=== PATIENT | male | born 1985 | race Caucasian/White ===

== ENCOUNTER 2021-04-24 00:40 | Emergency (ER) | payer SELFPAY ==
[~2021-04-24] VITALS: Ht 180.3 cm; Wt 81.8 kg
[2021-04-24] MEDS ORDERED: NEOMY/BACITR/POLYMYXIN OINT PACKET. TP ONE (02:15)
[2021-04-24] MEDS ORDERED: LIDOCAINE 1% Multi-Dose 20 ML VIAL. INJ ONE (02:15)
[2021-04-24] MEDS ORDERED: DIPH,PERTUSS(ACELL),TET VAC/PF 0.5 ML SYRINGE. VAX IM ONE (02:15)
--- NOTE | 2021-04-24 03:02 | RAD ---
XR RT WRIST 3VIEWS, XR FOREARM_RIGHT 2 VIEWS History: Reason: pain/puncture laceration / Spl. Instructions: / History: Technique: 3 views right wrist and 2 views right forearm Comparison: None. Findings: Right forearm: Normal alignment. No fracture. No radiopaque foreign body. Soft tissue swelling along the ulnar aspect of the distal forearm. Right wrist: Normal alignment. No fracture. No radiopaque foreign body. Impression: 1. No acute osseous abnormality. No radiopaque foreign body. Electronically signed by: Lane Yeboah DO (04/24/2021 3:00 AM) NATHANIEL
--- NOTE | 2021-04-24 04:32 | PHYS DOC ---
General Adult EDM: Chief Complaint: LACERATION/AVULSION HPI: HPI: 36-year-old male who denies any significant past medical history presents the ED with complaints of right wrist laceration after patient was flipping his knife to close it, lost control while attempting to grab it, was cut by knife puncturi ng his dominant wrist. 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 Has no suicidal thoughts or plans. Was not under the influence of any alcohol or drugs. Reports his tetanus is up-to-date. Review of Systems: Review of Systems: Constitutional: Denies fever or chills. [] Eyes: Denies change in visual acuity. [] HENT: Denies nasal congestion or sore throat. [] Respiratory: Denies cough or shortness of breath. [] Cardiovascular: Denies chest pain or edema. [] Musculoskeletal: Denies back pain or joint pain. [] Integument: Denies skin color changes or brisk bleeding Neurologic: Denies focal weakness or sensory changes, no pain Lymphatic: Denies swollen glands. [] Psychiatric: Denies depression or anxiety. [] Heart Score: C/O Chest Pain: No Risk Factors: Risk Factors: DM, Current or recent (<one month) smoker, HTN, HLP, family history of CAD, obesity. Risk Scores: Score 0 - 3: 2.5% MACE over next 6 weeks - Discharge Home Score 4 - 6: 20.3% MACE over next 6 weeks - Admit for Clinical Observation Score 7 - 10: 72.7% MACE over next 6 weeks - Early Invasive Strategies Current Medications: Current Medications Medications (Trade) Dose Ordered Sig/Tai Start Time Stop Time Status Last Admin Dose Admin Diphtheria/ Tetanus/Acell Pertussis (ADACEL TDap SYRINGE) 0.5 ml ONCE ONCE 04/24/21 02:15 04/24/21 02:16 DC 04/24/21 02:11 0.5 ML Lidocaine HCl (Lidocaine 1% 20ml Vial) 20 ml 1X ONCE 04/24/21 02:15 04/24/21 02:16 DC 04/24/21 04:13 20 ML Neomycin/ Polymyxin/ Bacitracin (Triple Antibiotic Ointment) 1 pkt 1X ONCE 04/24/21 02:15 04/24/21 02:16 DC 04/24/21 04:13 1 PKT Allergies: Allergies: Allergies Coded Allergies Type Severity Reaction Last Updated Verified No Known Drug Allergies 04/24/21 No Physical Exam: PE: Constitutional: Well developed, well nourished, no acute distress, non-toxic appearance. HENT: Normocephalic, atraumatic, Eyes: EOMI, conjunctiva normal, no discharge. Neck: Normal range of motion, supple, Cardiovascular: S1/2 present, regular rhythm Lungs & Thorax: Speaking in full sentences, bilateral equal chest rise, no tachypnea or increased work of breathing Skin: Warm, dry, Extremities: No tenderness, no cyanosis, all 5 fingers with cap refill less than 1 second, equal radial pulses, Neurologic: Alert and oriented X 3, able to bend and's X flex right wrist with normal range of motion, no pain above and below wrist joint, small 1.5cm V- shaped laceration over ulnar aspect of distal right wrist underlying contusion, does not appear to be a deep wound, no active bleeding Psychologic: Affect normal, judgement normal, mood normal. [] EKG: EKG: [] Radiology/Procedures: Radiology/Procedures: IMAGING REPORT Signed PATIENT: CARISSA HARDING ACCOUNT: [id number] : 1985 LOCATION: ER AGE: 36 SEX: M EXAM STATUS: REG ER ORD. PHYSICIAN: MARIA LUZ GLEZ DO REASON: pain/puncture laceration PROCEDURE: WRIST 3V RIGHT XR RT WRIST 3VIEWS, XR FOREARM_RIGHT 2 VIEWS History: Reason: pain/puncture laceration / Spl. Instructions: / History: Technique: 3 views right wrist and 2 views right forearm Comparison: None. Findings: Right forearm: Normal alignment. No fracture. No radiopaque foreign body. Soft tissue swelling along the ulnar aspect of the distal forearm. Right wrist: Normal alignment. No fracture. No radiopaque foreign body. Impression: 1. No acute osseous abnormality. No radiopaque foreign body. Electronically signed by: Lane Yeboah DO (04/24/2021 3:00 AM) [facility] DICTATED and SIGNED BY: LANE YEBOAH DO DATE: 04/24/21 [id number] 0 Indication: Right wrist laceration Procedure: The patient was placed in the appropriate position and anesthesia around the wrist laceration lidocaine. The area was then copiously irrigated. The laceration was closed with 4-0 Prolene, total of 5 sutures. The wound area was then dressed with triple antibiotic ointment and sterile dressings. Total repaired wound length: 2 cm. Other Items: None The patient tolerated the procedure. Complications: None. Course & Med Decision Making: Course & Med Decision Making Pertinent Labs and Imaging studies reviewed. (See chart for details) Concern for accidental laceration (no concern for SI) to patient's right breast well approximated with 5 sutures. There is underlying soft tissue contusion -no concern for acute fracture versus vascular injury. Patient with full range of motion. Hemodynamically stable. Wound care instructions given. Will discharge home with strict ED return precautions were given for infection, fever, rash, decreased range of motion, neurologic deficits or severe pain. Encouraged urgent outpatient follow-up with PMD and wound care as needed for definitive management. Life-threatening processes were considered but are low suspicion at this time, given history, physical exam and ED workup. Pt was educated on all prescription medications and adverse effects. All patient's questions were answered and pt was stable at time of discharge. Life/limb-threatening differential includes but is not limited to, trauma (fracture, dislocation, laceration, compartment syndrome, tendon or ligament injury), neurovascular injury or deficitcva/tia, infection (osteomyelitis, abscess, cellulitis, septic arthritis, necrotizing fasciitis), deep vein thrombosis, renal/cardiac/liver disease, medication adverse effect, lymphedema/anasarca, vascular insufficiency or malignancy, I spoken with the patient and her caregivers. I explained the patient's condition, diagnoses and treatment plan based on the information available to me at this time. I have answered the patient and her caregiver's questions and addressed any concerns. The patient and her caregivers have a good understanding of patient's diagnosis, condition and treatment plan as can be expected at this point. Vital signs have been stable. Patient's condition is stable and appropriate for discharge from the emergency department. Patient will pursue further outpatient evaluation with primary care physician or other designated or consulting physician as outlined in the discharge instructions. The patient and/or caregivers are agreeable to this plan of care and follow-up instructions have been explained in detail. The patient and/or caregivers have received these instructions in written form and have expressed an understanding of the discharge instructions. The patient and/or caregivers are aware that any significant change of condition or worsening of symptoms should prompt immediate return to this or the closest emergency department or call to [id number] Disclaimer: Aracelis Disclaimer: This electronic medical record was generated, in whole or in part, using a voice recognition dictation system. Departure Departure Impression: Primary Impression: Laceration of wrist, right Referrals: SILKE JOINER (PCP) suture removal in 7-10 days Patient Instructions: Laceration Care, Adult, Wound Care, [id number] Additional Instructions: FOLLOW UP WITH WOUND CARE: For definitive wound care [facility] [address], [address] [place] [address] EMERGENCY DEPARTMENT GENERAL DISCHARGE INSTRUCTIONS Thank you for coming to [facility] Emergency Department (ED) today and trusting us with you care. We trust that you had a positive experience in our Emergency Department. If you wish to speak to the department management, you may call the Director at [phone]. YOUR FOLLOW UP INSTRUCTIONS ARE FOLLOWS: 1. Do you have a private Doctor? If you do not have a private doctor, please ask for a resource list of physicians or clinics that may be able to assist you with follow up care. 2. The Emergency Physicain has interpreted your x-rays. The X-Ray specialist will also review them. If there is a change in the findings, you will be notified in 48 hours when at all possible. 3. A lab test or culture has been done, your results will be reviewed and you will be notified if you need a change in treatment. ADDITIONAL INSTRUCTIONS AND INFORMATION: 1. Your care today has been supervised by a physician who is specially trained in emergency care. Many problems require more than one evaluation for a complete diagnosis and treatment. We recommend that you schedule your follow up appointment as recommended to ensure complete treatment of you illness or injury. If you are unable to obtain follow up care and continue to have a problem, or if your condition worsens, we recommend that you return to the ED. 2. We are not able to safely determine your condition over the phone nor are we able to give sound medical advice over the phone. For these safety reasons, if you call for medical advice we will ask you to come to the ED for further evaluation. 3. If you have any questions regarding these discharge instructions please call the ED at [phone]. SAFETY INFORMATION: In the interest of safety, wellness, and injury prevention; we encourage you to wear your sealbelt, if you smoke; quite smoking, and we encourage family to use a protective helmet for bicycling and other sporting events that present an increased risk for head injury. IF YOUR SYMPTOMS WORSEN OR NEW SYMPTOMS DEVELOP, OR YOU HAVE CONCERNS ABOUT YOUR CONDITION; OR IF YOUR CONDITION WORSENS WHILE YOU ARE WAITING FOR YOUR FOLLOW UP APPOI NTMENT; EITHER CONTACT YOUR PRIMARY CARE DOCTOR, THE PHYSICIAN WHOSE NAME AND NUMBER YOU WERE GIVEN, OR RETURN TO THE ED IMMEDIATELY. MARIA LUZ GLEZ DO Apr 24, 2021 04:32
[2021-04-24 04:45] VITALS: BP 135/85
== END 2021-04-24 04:50 | disposition home or self-care (01) ==
LOC: ER 00:40
DX: S61.511A Laceration without foreign body of right wrist, initial encounter (principal); W26.0XXA Contact with knife, initial encounter; Y93.89 Activity, other specified; Y92.89 Other specified places as the place of occurrence of the external cause; Y99.8 Other external cause status
CPT/HCPCS: 12001; 73090; 73110; 90471; 90715; 99284; J3490